=== PATIENT | male | born 1960 | race American Indian/Alaskan Native ===

== ENCOUNTER 2018-11-22 06:32 | Emergency (ER) | payer SELFPAY ==
[2018-11-22 08:00] LABS: Bacteria,Urine 1+ /HPF (Negative); Bilirubin,Urine NEG (Negative); Blood,Urine MOD (Negative); Color,Urine Yellow (Yellow); Mucus,Urine 2+ /HPF; Urobilinogen,Urine < 2.0 mg/dL (<2.0)
[2018-11-22 08:25] LABS: Hematocrit 42.4 % (35.5-45.6); Hemoglobin 14.6 gm/dl (11.8-15.2); Mean Corpuscular HGB Conc 34 % (32-34); Mean Corpuscular Volume 92 fl (84-94); Platelet Count 157 K/mm3 (140-440); Red Blood Count 4.61 M/mm3 (3.65-5.03); Red Cell Distribution Width 13.3 % (13.2-15.2)
[2018-11-22 08:36] LABS: Alanine Aminotransferase 20 units/L (7-56); Albumin 4.1 g/dL (3.9-5); BUN/Creatinine Ratio 14; Blood Urea Nitrogen 15 mg/dL (9-20); Calcium 9.7 mg/dL (8.4-10.2); Hemolysis Index 5
[2018-11-22] MEDS ORDERED: LEVAQUIN PO STA (08:56)
--- NOTE | 2018-11-22 08:57 | Emergency Department Report ---
ED Male HPI - General Chief complaint: Urogenital-Male Stated complaint: PAINFUL URINATION Time Seen by Provider: 11/22/18 07:46 Source: patient Mode of arrival: Ambulatory Limitations: No Limitations - History of Present Illness Initial comments: 58-year-old -Indian male with past medical history hypertension. Sensorimotor department complaining of a 2 day history of progressively worsening dysuria and thinks that he is having significant urgency to urinate with sharp burning pain upon doing so. When he does urinate a small amount and he does have some hesitancy before on and consistent. There is to continue urinating once he has completed. He denies any possibility of an STD and to his knowledge has not had a urinary tract infection. Reports no chest pain or palpitations. No fever, chills, sweats. MD Complaint: dysuria -: Gradual Radiation: none Severity: mild Quality: burning, dull Consistency: constant Worsens with: urination urinary retention, dysuria. denies: discharge, swelling, fever, nausea/vomiting, incontinence - Related Data Previous Rx's Medication Instructions Recorded Last Taken Type Acetaminophen/Codeine [Tylenol 1 tab PO Q6H PRN #10 tab 11/22/18 Unknown Rx /Codeine # 3 tab] Phenazopyridine [Pyridium] 200 mg PO TID #9 tab 11/22/18 Unknown Rx levoFLOXacin [Levaquin TAB] 500 mg PO QDAY #10 tablet 11/22/18 Unknown Rx Allergies Allergy/AdvReac Type Severity Reaction Status Date / Time No Known Allergies Allergy Unverified 11/22/18 06:40 ED Review of Systems ROS: Stated complaint: PAINFUL URINATION Other details as noted in HPI ED Past Medical Hx - Past Medical History Previous Medical History?: Yes Hx Hypertension: Yes - Surgical History Past Surgical History?: No - Social History Smoking Status: Former Smoker Substance Use Type: Alcohol - Medications Home Medications: Home Medications Medication Instructions Recorded Confirmed Last Taken Type Acetaminophen/Codeine [Tylenol 1 tab PO Q6H PRN #10 tab 11/22/18 Unknown Rx /Codeine # 3 tab] Phenazopyridine [Pyridium] 200 mg PO TID #9 tab 11/22/18 Unknown Rx levoFLOXacin [Levaquin TAB] 500 mg PO QDAY #10 tablet 11/22/18 Unknown Rx ED Physical Exam - General Limitations: No Limitations General appearance: alert, in no apparent distress - Head Head exam: Present: atraumatic, normocephalic - Eye Eye exam: Present: normal appearance - ENT ENT exam: Present: mucous membranes moist - Neck Neck exam: Present: normal inspection - Respiratory Respiratory exam: Present: normal lung sounds bilaterally. Absent: respiratory distress - Cardiovascular Cardiovascular Exam: Present: normal rhythm, tachycardia. Absent: systolic murmur, diastolic murmur, rubs, gallop - GI/Abdominal GI/Abdominal exam: Present: soft, tenderness (to the suprapubic region with palpation. No CVA tenderness noted), normal bowel sounds - Rectal Rectal exam: Present: deferred - Extremities Exam Extremities exam: Present: normal inspection - Back Exam Back exam: Present: normal inspection - Neurological Exam Neurological exam: Present: alert, oriented X3 - Psychiatric Psychiatric exam: Present: normal affect, normal mood - Skin Skin exam: Present: warm, dry, intact, normal color. Absent: rash ED Course Vital Signs 11/22/18 11/22/18 11/22/18 06:40 09:27 10:23 Temperature 98.6 F 98.7 F Pulse Rate 121 H 112 H 106 H Respiratory 20 20 99 H Rate Blood Pressure 152/104 Blood Pressure 137/83 [Left] O2 Sat by Pulse 92 95 Oximetry ED Medical Decision Making - Lab Data Result diagrams: 11/22/18 08:02 11/22/18 08:02 - Medical Decision Making 58-year-old Indian male with a couple day history of progressively worsening dysuria laboratory data it does support a urinary tract infection. His white count is elevated around 20 is little tachycardic around 106 months. Pain is resolved. He is alert and oriented, no palpitations, no presyncope. Plan is to 2. Days. Is to return to the emergency department is not treatment. He is not triggering sepsis at this time. Case was discussed with with Dr. Meade who agrees with the current plan Critical care attestation.: If time is entered above; I have spent that time in minutes in the direct care of this critically ill patient, excluding procedure time. ED Disposition Clinical Impression: UTI (urinary tract infection) Disposition: DC-01 TO HOME OR SELFCARE Is pt being admited?: No Does the pt Need Aspirin: No Condition: Stable Instructions: Urinary Tract Infection in Men (ED), Phenazopyridine (By mouth), Dysuria (ED) Prescriptions: levoFLOXacin [Levaquin TAB] 500 mg PO QDAY #10 tablet Phenazopyridine [Pyridium] 200 mg PO TID #9 tab Acetaminophen/Codeine [Tylenol /Codeine # 3 tab] 1 tab PO Q6H PRN #10 tab PRN Reason: Pain, Moderate (4-6) Referrals: BEVERLEY LANE MD [Primary Care Provider] - 3-5 Days
[2018-11-22 09:16] LABS: Band Neutrophils # (Manual) 2.1 K/mm3; Basophils % (Manual) 0 % (0.0-1.8); Eosinophils % (Manual) 0 % (0.0-4.3); Total Cells Counted 100
[2018-11-22 09:17] LABS: Platelet Estimate Consistent w Auto; RBC Morphology Normal
[2018-11-22 09:29] VITALS: BP 137/83
[2018-11-22] MEDS ORDERED: NORCO 5/325 PO ONE (09:30)
[2018-11-22] MEDS ORDERED: NORCO 5/325 ONE (09:34)
== END 2018-11-22 11:02 | disposition home or self-care (01) ==
LOC: ED 06:32
DX: N39.0 Urinary tract infection, site not specified (principal); I10 Essential (primary) hypertension; Z87.891 Personal history of nicotine dependence; Z79.899 Other long term (current) drug therapy
CPT/HCPCS: 36415; 80053; 81001; 85007; 85025